=== PATIENT | female | born 1940 | race Caucasian/White ===

== ENCOUNTER 2016-07-18 08:44 | Inpatient (IN) | payer MEDICARE, OTHER ==
[~2016-07-18] VITALS: Ht 160 cm; Wt 58.1 kg
[2016-07-18 09:30] LABS: HEMOGLOBIN 14.1 gm/dl (12.3-15.3); RED BLOOD COUNT 4.44 M/UL (4.00-5.10); WHITE BLOOD COUNT 6.4 K/UL (4.5-11.0)
[2016-07-18 09:54] LABS: BUN/CREATININE RATIO 19 (0-10)
[2016-07-19 08:09] LABS: HEMOGLOBIN 14.1 gm/dl (12.3-15.3); RED BLOOD COUNT 4.46 M/UL (4.00-5.10); WHITE BLOOD COUNT 6.4 K/UL (4.5-11.0)
[2016-07-19 08:24] LABS: BUN/CREATININE RATIO 23 (0-10)
[2016-07-20] MEDS ORDERED: ECOTRIN325 MG PO (14:44)
[2016-07-20] MEDS ORDERED: LOPRESSOR 25 MG25 MG PO (14:45)
[2016-07-20] MEDS ORDERED: LIPITOR TAB 2020 MG PO (14:46)
== END 2016-07-20 16:31 | disposition home or self-care (01) | DRG 65 ==
LOC: ER1 08:44 → ZEROF 10:58 → M/S 20:30
PROVIDERS: Emergency Medicine; ADMIT Internal Medicine Infectious Disease
DX: I63.312 Cerebral infarction due to thrombosis of left middle cerebral artery (principal); I47.1 Supraventricular tachycardia; R47.81 Slurred speech; E78.5 Hyperlipidemia, unspecified; I10 Essential (primary) hypertension; Z98.890 Other specified postprocedural states; E55.9 Vitamin D deficiency, unspecified; Z85.828 Personal history of other malignant neoplasm of skin; Z82.49 Family history of ischemic heart disease and other diseases of the circulatory system; Z88.2 Allergy status to sulfonamides; R07.9 Chest pain, unspecified
CPT/HCPCS: ECHO; 36415; 70450; 70544; 70551; 71010; 80048; 80053; 80061; 81001; 82550; 82553; 83735; 83874; 84484; 85025; 85610; 85730; 87086; 93005; 93306; 93312; 93320; 93880; 99284; J1650; J2250; J3010

== ENCOUNTER 2016-07-21 18:54 | Emergency (ER) | payer MEDICARE, OTHER ==
[~2016-07-21 18:54] MED LIST: ECOTRIN325 MG PO; LIPITOR TAB 2020 MG PO; LOPRESSOR 25 MG25 MG PO
[2016-07-22 02:43] LABS: HEMOGLOBIN 13.7 gm/dl (12.3-15.3); RED BLOOD COUNT 4.29 M/UL (4.00-5.10)
[2016-07-22 02:45] LABS: WHITE BLOOD COUNT 8.1 K/UL (4.5-11.0)
[2016-07-22 03:07] LABS: BUN/CREATININE RATIO 27 (0-10)
== END 2016-07-22 04:08 | disposition home or self-care (01) ==
LOC: ER1 18:54 → ZEROF 07-22 01:30
PROVIDERS: Emergency Medicine
DX: R47.81 Slurred speech (principal); I63.312 Cerebral infarction due to thrombosis of left middle cerebral artery; I65.23 Occlusion and stenosis of bilateral carotid arteries; R25.1 Tremor, unspecified; F41.9 Anxiety disorder, unspecified; R41.3 Other amnesia; E55.9 Vitamin D deficiency, unspecified; I10 Essential (primary) hypertension; Z98.890 Other specified postprocedural states; Z88.2 Allergy status to sulfonamides; Z79.899 Other long term (current) drug therapy; Z79.82 Long term (current) use of aspirin
CPT/HCPCS: 36415; 70450; 80053; 82550; 82553; 83874; 84484; 85025; 93270; 99285; Q0177

== ENCOUNTER → 2016-09-22 | Outpatient (CLI) | payer MEDICARE, OTHER | LOC: MAMO 10:58 | DX: Z12.31 Encounter for screening mammogram for malignant neoplasm of breast (principal) | CPT/HCPCS: G0202 ==

== ENCOUNTER 2020-08-06 08:49 | Emergency (ER) | payer OTHER ==
[~2020-08-06 08:49] MED LIST changes: +ATORVASTATIN CA10 MG PO; +CLOPIDOGREL75 MG PO; +DEPAKOTE 250 M250 MG PO; +DOCUSATE SODIU100 MG PO; +DONEPEZIL HCL10 MG PO; +FERROUS GLUCON324 M2 PO; +HYGROTON TAB 2525 MG PO; +LASIX20 MG PO; +LEVOCETIRIZINE D5 MG PO; +LEXAPRO10 MG PO; +LISINOPRIL5 MG PO; +LOVENOX40 MG/0.4 SQ; +MEGACE 400400 MG/10 PO; +METOPROLOL TART25 MG PO; +NEOSPORIN OINT30 GM EXT; +NORCO 5-325 TA1 EACH PO; +POTASSIUM CHLO10 ME1 PO; +QUETIAPINE FUMA25 MG PO; +SEROQUEL25 MG PO; +TYLENOL 500 MG500 MG PO; +TYLENOL W/CODEIN1 EA PO
[2020-08-06 09:51] LABS: HEMOGLOBIN 12.2 gm/dl (12.3-15.3); RED BLOOD COUNT 4.06 M/UL (4.00-5.10); WHITE BLOOD COUNT 7.3 K/UL (4.5-11.0)
[2020-08-06 10:18] LABS: BUN/CREATININE RATIO 14 (0-10)
[2020-08-06] MEDS ORDERED: PROTONIX40 MG PO (14:22)
[2020-08-06] MEDS ORDERED: ZOFRAN4 MG PO (14:22)
== END 2020-08-06 14:30 | disposition home or self-care (01) ==
LOC: ER1 08:49
PROVIDERS: Physician Assistant
DX: K22.8 Other specified diseases of esophagus (principal); I11.0 Hypertensive heart disease with heart failure; I50.9 Heart failure, unspecified; Z88.2 Allergy status to sulfonamides; Z88.8 Allergy status to other drugs, medicaments and biological substances
CPT/HCPCS: 71045; 80053; 81001; 82150; 82550; 82553; 83690; 83874; 84484; 85025; 93005; 96374; 99285; C9113; Q9967